=== PATIENT | male | born 2000 | race Caucasian/White ===

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

== ENCOUNTER 2021-09-18 14:52 | Emergency (ER) | payer OTHER ==
[~2021-09-18] VITALS: Ht 180.3 cm; Wt 86.4 kg
[2021-09-18 14:52] VITALS: BP 139/67
[~2021-09-18 14:52] MED LIST: ONDA4TAB6 PO
== END 2021-09-18 18:30 | disposition left against medical advice (07) ==
LOC: M ED 14:52
DX: Z53.21 Procedure and treatment not carried out due to patient leaving prior to being seen by health care provider (principal)